=== PATIENT | female | born 1945 ===

== ENCOUNTER 2017-02-19 11:24 | Day surgery (SDC) | payer OTHER ==
[2016-02-28 10:44] VITALS: BMI 20.2
[2017-02-19] MEDS ORDERED: Lactated Ringer's 500 ML IV ONE (14:15)
[2017-02-19] MEDS ORDERED: Propofol 10 mg/ml Inj (20 ML) ONE (14:33)
[2017-02-19 15:00] VITALS: BP 127/59; PULSE 59; RESP 11; TEMP 97.6; O2SAT 100
== END 2017-02-19 15:04 | disposition home or self-care (01) ==
LOC: H.ENDO 11:24
PROVIDERS: ATTEND Internal Medicine Gastroenterology
DX: R10.13 Epigastric pain (principal); E03.9 Hypothyroidism, unspecified; E78.5 Hyperlipidemia, unspecified; I10 Essential (primary) hypertension; K22.8 Other specified diseases of esophagus; K44.9 Diaphragmatic hernia without obstruction or gangrene; K31.9 Disease of stomach and duodenum, unspecified; K31.7 Polyp of stomach and duodenum; K57.30 Diverticulosis of large intestine without perforation or abscess without bleeding; R93.3 Abnormal findings on diagnostic imaging of other parts of digestive tract
CPT/HCPCS: 43239; 88305; J2704; J7120